=== PATIENT | male | born 1930 | race Caucasian/White ===

== ENCOUNTER 2017-11-11 00:13 | Inpatient (IN) | payer OTHER, MEDICARE ==
[~2017-11-11] VITALS: Ht 175.3 cm; Wt 112.5 kg
[2017-11-11 01:48] LABS: microscopic required? NO
[2017-11-11 02:08] LABS: ALKALINE PHOSPHATASE 329 U/L (46-116); ALT/SGPT 305 U/L (16-63); AST/SGOT 464 U/L (15-37); BILIRUBIN TOTAL 2.92 mg/dL (0.20-1.00); CALCIUM 8.7 mg/dL (8.5-10.1); CARBON DIOXIDE 25.8 mmol/L (21-32); CHLORIDE SERUM 103 mmol/L (98-107); CREATININE SERUM 1.7 mg/dL (0.7-1.3); GLUCOSE SERUM 151 mg/dL (74-106); SODIUM SERUM 140 mmol/L (136-145); TOTAL PROTEIN, SERUM 6.8 g/dL (6.4-8.2)
[2017-11-11 02:13] LABS: ALBUMIN 3.3 g/dL (3.4-5.0); LIPASE 12640 IU/L (73-393)
[2017-11-11 02:15] LABS: POTASSIUM SERUM 2.9 mmol/L (3.5-5.1)
[2017-11-11 02:22] LABS: urine erythrocyte NEGATIVE (NEGATIVE)
[2017-11-11 02:22] LABS: BASOPHIL % 0.4 % (0-2); PLATELET COUNT 354 x10^3mcL (130-400); RED CELL DISTRIBUTION WIDTH 13.6 % (11.5-14.5)
[2017-11-11] MEDS ORDERED: PANTOPRAZOLE SO40 M1 PO (03:13)
[2017-11-11] MEDS ORDERED: FUROSEMIDE40 MG PO (03:13)
[2017-11-11] MEDS ORDERED: METFORMIN HYDR500 M1 PO (03:13)
[2017-11-11] MEDS ORDERED: HYDROXYZINE HYD25 MG PO (03:14)
[2017-11-11] MEDS ORDERED: ATORVASTATIN CA20 M1 PO (03:15)
[2017-11-11] MEDS ORDERED: BENAZEPRIL HCL/1 TAB PO (03:16)
[2017-11-11 06:23] LABS: T3 TOTAL 0.88 ng/mL
[2017-11-11 06:32] LABS: FREE T4 1.44 ng/dL (0.76-1.46); FREE THYROXINE INDEX 3.3 ug/dL (1.4-4.5); T4(THYROXINE) 8.4 ug/dL (4.7-13.3)
[2017-11-11 06:43] LABS: CHOLESTEROL/HDL RATIO 2.7; MAGNESIUM 1.8 mg/dL (1.8-2.4); PHOSPHOROUS 1.6 mg/dL (2.5-4.9)
[2017-11-11 07:45] VITALS: BP 98/57
[2017-11-11 07:51] LABS: CARBON DIOXIDE 18.1 mmol/L (21-32); CHLORIDE SERUM 99 mmol/L (98-107); CREATININE SERUM 1.6 mg/dL (0.7-1.3); GLUCOSE SERUM 137 mg/dL (74-106); SODIUM SERUM 134 mmol/L (136-145)
[2017-11-11 10:39] VITALS: BP 98/57
[2017-11-11 12:00] VITALS: BP 95/65
[2017-11-11 16:45] VITALS: BP 125/70
[2017-11-11 19:12] LABS: CALCIUM 8.2 mg/dL (8.5-10.1); CARBON DIOXIDE 22.1 mmol/L (21-32); CHLORIDE SERUM 110 mmol/L (98-107); CREATININE SERUM 1.8 mg/dL (0.7-1.3); GLUCOSE SERUM 124 mg/dL (74-106); POTASSIUM SERUM 4.6 mmol/L (3.5-5.1); SODIUM SERUM 143 mmol/L (136-145)
[2017-11-11 19:40] VITALS: BP 118/59
[2017-11-11 23:23] VITALS: BP 127/42
[2017-11-12 03:47] VITALS: BP 100/56
[2017-11-12 05:34] LABS: PLATELET COUNT 241 x10^3mcL (130-400); RED CELL DISTRIBUTION WIDTH 14.2 % (11.5-14.5)
[2017-11-12 05:45] LABS: BILIRUBIN DIRECT 3.96 mg/dL (0.0-0.2); BILIRUBIN TOTAL 4.88 mg/dL (0.20-1.00)
[2017-11-12 05:57] LABS: ALBUMIN 2.4 g/dL (3.4-5.0); TOTAL PROTEIN, SERUM 5.5 g/dL (6.4-8.2)
[2017-11-12 07:49] VITALS: BP 106/61
[2017-11-12 08:34] LABS: CALCIUM 8.2 mg/dL (8.5-10.1); CARBON DIOXIDE 17.9 mmol/L (21-32); CHLORIDE SERUM 109 mmol/L (98-107); CREATININE SERUM 1.5 mg/dL (0.7-1.3); GLUCOSE SERUM 104 mg/dL (74-106); POTASSIUM SERUM 4.8 mmol/L (3.5-5.1); SODIUM SERUM 139 mmol/L (136-145)
[2017-11-12 08:37] LABS: MAGNESIUM 2.2 mg/dL (1.8-2.4); PHOSPHOROUS 2.7 mg/dL (2.5-4.9)
[2017-11-12 12:00] VITALS: BP 143/80
[2017-11-12 16:45] VITALS: BP 136/66
[2017-11-12 19:26] VITALS: BP 125/70
[2017-11-12 20:10] VITALS: Ht 175.3 cm; Wt 112.5 kg
[2017-11-13 05:21] LABS: BASOPHIL % 0.7 % (0-2); PLATELET COUNT 205 x10^3mcL (130-400)
[2017-11-13 05:31] LABS: RED CELL DISTRIBUTION WIDTH 15.5 % (11.5-14.5)
[2017-11-13 05:49] LABS: ALKALINE PHOSPHATASE 234 U/L (46-116); ALT/SGPT 173 U/L (16-63); AMYLASE 51 U/L (25-115); AST/SGOT 96 U/L (15-37); BILIRUBIN TOTAL 4.27 mg/dL (0.20-1.00); CALCIUM 8.4 mg/dL (8.5-10.1); CARBON DIOXIDE 25.1 mmol/L (21-32); CHLORIDE SERUM 111 mmol/L (98-107); CREATININE SERUM 1.1 mg/dL (0.7-1.3); GLUCOSE SERUM 95 mg/dL (74-106); LIPASE 503 IU/L (73-393); PHOSPHOROUS 2.1 mg/dL (2.5-4.9); POTASSIUM SERUM 4.1 mmol/L (3.5-5.1); SODIUM SERUM 143 mmol/L (136-145)
[2017-11-13 05:50] LABS: ALBUMIN 2.4 g/dL (3.4-5.0); TOTAL PROTEIN, SERUM 5.7 g/dL (6.4-8.2)
[2017-11-13 07:26] VITALS: BP 147/86
[2017-11-13 11:00] VITALS: BP 152/84
[2017-11-13] MEDS ORDERED: LEVAQUIN750 MG PO (12:32)
[2017-11-13] MEDS ORDERED: FLA500 PO (12:33)
[2017-11-13 12:40] VITALS: BP 152/84
== END 2017-11-13 13:14 | disposition home or self-care (01) | DRG 720 ==
LOC: ED 00:13 → DU 04:26 → IC 04:26
PROVIDERS: Emergency Medicine; Internal Medicine; Internal Medicine Gastroenterology
PROC: 0FC98ZZ Extirpation of Matter from Common Bile Duct, Via Natural or Artificial Opening Endoscopic (ICD-10-PCS; principal; 2017-11-12 09:00)
PROC: 0DB68ZX Excision of Stomach, Via Natural or Artificial Opening Endoscopic, Diagnostic (ICD-10-PCS; 2017-11-12 09:00)
DX: A41.9 Sepsis, unspecified organism (principal); N17.0 Acute kidney failure with tubular necrosis; J96.01 Acute respiratory failure with hypoxia; R65.21 Severe sepsis with septic shock; K85.10 Biliary acute pancreatitis without necrosis or infection; E83.39 Other disorders of phosphorus metabolism; I43 Cardiomyopathy in diseases classified elsewhere; E11.22 Type 2 diabetes mellitus with diabetic chronic kidney disease; K80.40 Calculus of bile duct with cholecystitis, unspecified, without obstruction; I13.10 Hypertensive heart and chronic kidney disease without heart failure, with stage 1 through stage 4 chronic kidney disease, or unspecified chronic kidney disease; N18.9 Chronic kidney disease, unspecified; K21.9 Gastro-esophageal reflux disease without esophagitis; E87.6 Hypokalemia; E80.6 Other disorders of bilirubin metabolism; E78.00 Pure hypercholesterolemia, unspecified; Z68.33 Body mass index [BMI] 33.0-33.9, adult; Z79.84 Long term (current) use of oral hypoglycemic drugs; Z86.73 Personal history of transient ischemic attack (TIA), and cerebral infarction without residual deficits
CPT/HCPCS: 36600; 43262; 82962; 83880; 84439; C1758; C1769; C9113; J1610; J1956; J2405; J2543; J3480; J3490; J7030; J7120; Q0092; Q9967